=== PATIENT | female | born 1950 | race Caucasian/White ===

== ENCOUNTER → 2016-11-03 | Outpatient (CLI) | payer OTHER, MEDICARE | LOC: FIMAGING 12:08 | PROVIDERS: ATTEND Internal Medicine | DX: M16.0 Bilateral primary osteoarthritis of hip (principal); M51.36 Other intervertebral disc degeneration, lumbar region; M48.06 Spinal stenosis, lumbar region ==

== ENCOUNTER 2016-12-14 06:07 | Inpatient (IN) | payer OTHER, MEDICARE ==
[~2016-12-14 06:07] MED LIST: ROPIVACAINE 0.2% 80 MG, EPINEPHrine 0.2 MG in BAG 0 ML IU ONE; TRANEXAMIC ACID 3,000 MG in NS 50 ML IRR ONE
[2016-12-14] MEDS ORDERED: DEXAMETHASONE 4 MG/ML VIAL IVP ONE (06:33)
[2016-12-14] MEDS ORDERED: FAMOTIDINE 20 MG TAB PO ONE (06:33)
[2016-12-14] MEDS ORDERED: ceFAZolin 2 GM/SWFI 2 GM/20 ML SYR IVP ONE (06:33)
[2016-12-14] MEDS ORDERED: ACETAMINOPHEN 325 MG TAB PO ONE (06:33)
[2016-12-14] MEDS ORDERED: TRANEXAMIC ACID 3,000 MG/50 ML BAG IRR ONE (06:51)
[2016-12-14] MEDS ORDERED: MIDAZOLAM 2 MG/2 ML VIAL IVP ONE (07:00)
--- NOTE | 2016-12-14 07:03 | PDANEPAE ---
ANE History of Present Illness djd hip s/f LYDIA ANE Past Medical History - Cardiovascular History Hx Hypertension: No Hx Arrhythmias: No Hx Chest Pain: No Hx Coronary Artery / Peripheral Vascular Disease: No Hx CHF / Valvular Disease: No Hx Palpitations: No - Pulmonary History Hx COPD: No Hx Asthma/Reactive Airway Disease: No Hx Recent Upper Respiratory Infection: No Hx Oxygen in Use at Home: No Hx Sleep Apnea: No Sleep Apnea Screening Result - Last Documented: Negative - Neurologic History Hx Cerebrovascular Accident: No Hx Seizures: No Hx Dementia: No - Endocrine History Hx Diabetes: No - Renal History Hx Renal Disorders: No - Liver History Hx Hepatic Disorders: No - Neurological & Psychiatric Hx Hx Neurological and Psychiatric Disorders: No - Cancer History Hx Cancer: No - Congenital Disorder History Hx Congenital Disorders: No - GI History Hx Gastrointestinal Disorders: No - Other Health History Other Health History: OA R hip - Chronic Pain History Chronic Pain: Yes (R hip) - Surgical History Prior Surgeries: tonsillectomy age 18. bunionectomy age 32. rhinoplasty 1986 ANE Review of Systems Review of Systems: - Exercise capacity METS (RN): 5 METS ANE Patient History - Allergies Allergies/Adverse Reactions: No Known Allergies Allergy (Verified 12/07/16 13:48) - Home Medications Home medications: home medication list seen and reviewed Home Medications: Diazepam [Valium 5 MG (*)] 5 mg PO HS 12/02/16 [Last Taken 12/13/16] Herbals/Supplements -Info Only 1 ea PO DAILY 12/02/16 [Last Taken 12/06/16 10:00 ] Ibuprofen [Motrin (*)] 200 mg PO BID 12/02/16 [Last Taken 12/07/16] hydrOXYzine HCL [hydrOXYzine HCL (RX)] 25 mg PO HS 12/02/16 [Last Taken 12/13/16 ] traMADol [Ultram 50 mg (*)] 50 mg PO DAILY PRN 12/02/16 [Last Taken 11/30/16] - NPO status NPO Status: no food or drink >8 hours - Anes Hx Anes Hx: post operative nausea - Smoking Hx Smoking Status: Light smoker - Alcohol Use Alcohol Use: Occasionally - Family Anes Hx Family Anes Hx: none ANE Labs/Vital Signs - Labs - CBC WBC: reviewed - Vital Signs Height: 166.37 cm Weight: 50.349 kg ANE Physical Exam - Airway Neck exam: FROM Mallampati Score: Class 1 Mouth exam: poor dentition - Pulmonary Pulmonary: no respiratory distress - Cardiovascular Cardiovascular: regular rate and rhythym - ASA Status ASA Status: II ANE Anesthesia Plan Anesthesia Plan: MAC (R/B/A explained and agrees to proceed), spinal
--- NOTE | 2016-12-14 07:11 | PDHPUP ---
History & Physical Update H&P update statement: This history and physical update is based on an assessment of the patient which was completed after admission or registration (within 24 hours), but prior to the surgery/procedure. H&P update: H&P reviewed & patient examined, no change in patient's condition since H&P completed
[2016-12-14] MEDS ORDERED: PROPOFOL/EMULSION 500 MG/50 ML BOTTLE IV ONE (07:16)
[2016-12-14] MEDS ORDERED: fentaNYL 100 MCG/2 ML INJ ONE (07:16)
[2016-12-14] MEDS ORDERED: ONDANSETRON 4 MG/2 ML VIAL IVP PRN ×2 (07:23→08:11)
[2016-12-14] MEDS ORDERED: DIPHENOXYLATE/ATROPINE LOMOTIL 1 TAB PO PRN (07:23)
[2016-12-14] MEDS ORDERED: MAGNESIUM HYDROXIDE 30 ML UDCUP PO PRN (07:23)
[2016-12-14] MEDS ORDERED: LACTULOSE 20 GM/30 ML UDCUP PO PRN (07:23)
[2016-12-14] MEDS ORDERED: PROMETHAZINE HCL 25 MG SUPPR PR PRN (07:23)
[2016-12-14] MEDS ORDERED: METOCLOPRAMIDE 10 MG/2 ML VIAL IVP PRN ×2 (07:23→08:11)
[2016-12-14] MEDS ORDERED: TEMAZEPAM 15 MG CAP PO PRN (07:23)
[2016-12-14] MEDS ORDERED: diphenhydrAMINE 25 MG CAP PO PRN (07:23)
[2016-12-14] MEDS ORDERED: ONDANSETRON DISINTEGRATING 4 MG TAB PO PRN (07:23)
[2016-12-14] MEDS ORDERED: CYCLOBENZAPRINE 10 MG TAB PO PRN (07:23)
[2016-12-14] MEDS ORDERED: PROMETHAZINE HCL 25 MG/ML INJ IVP PRN ×2 (07:23→08:11)
[2016-12-14] MEDS ORDERED: BISACODYL 10 MG SUPP PR PRN (07:23)
[2016-12-14] MEDS ORDERED: POLYETHYLENE GLYCOL 3350 17 GM PKT PO PRN (07:23)
[2016-12-14] MEDS ORDERED: traMADol 50 MG TAB PO PRN (07:24)
[2016-12-14] MEDS ORDERED: NS 1,000 ML IV SCH (07:30)
[2016-12-14] MEDS ORDERED: PHENYLEPHRINE HCL 100 MCG/ML SYR ONE (07:53)
[2016-12-14] MEDS ORDERED: DEXAMETHASONE 4 MG/ML VIAL IVP PRN (08:11)
[2016-12-14] MEDS ORDERED: LR 500 ML IV PRN (08:11)
[2016-12-14] MEDS ORDERED: ALBUTEROL 3 ML DEYVIAL IH PRN (08:11)
[2016-12-14] MEDS ORDERED: ACETAMINOPHEN 500 MG TAB PO PRN (08:11)
[2016-12-14] MEDS ORDERED: LABETALOL HCL 50 MG/10 ML SYR IVP PRN (08:11)
[2016-12-14] MEDS ORDERED: fentaNYL 100 MCG/2 ML INJ IVP PRN (08:11)
[2016-12-14] MEDS ORDERED: HYDROCODONE/APAP 5/325 TAB PO PRN (08:11)
[2016-12-14] MEDS ORDERED: OXYCODONE/APAP 5/325 TAB PO PRN (08:11)
[2016-12-14] MEDS ORDERED: MEPERIDINE 25 MG/ML SYR IVP PRN (08:11)
[2016-12-14] MEDS ORDERED: NALOXONE HCL 0.4 MG/ML INJ IVP PRN (08:11)
[2016-12-14] MEDS ORDERED: PROPOFOL 200 MG/20 ML VIAL ONE (08:13)
--- NOTE | 2016-12-14 08:29 | POSTOPPROG ---
Post Op Note Date of Operation: 12/14/16 Surgeon: Genoveva [employer] Fundraising Director: karina bergeron Anesthesiologist: dr. gregory Anesthesia: Spinal Pre-op Diagnosis: right hip OA Post-op Diagnosis: same Indication: right hip pain due to OA that failed conservative measures Procedure: R LYDIA ant approach Findings: severe hip OA Inf/Abcess present in the surg proc area at time of surgery?: No EBL: 100-500
--- NOTE | 2016-12-14 10:00 | POSTANESTH ---
Post Anesthetic Evaluation Cardiovascular Status: Normal, Stable Respiratory Status: Normal, Stable Level of Consciousness/Mental Status: Can Participate in Eval Pain Control: Adequate, Prn Tx Ordered Nausea/Vomiting Control: Adequate, Prn Tx Ordered Complications Possibly Related to Anesthesia: None Noted
[2016-12-14 10:18] VITALS: RESP 16
[2016-12-14] MEDS: ACETAMINOPHEN 325 MG TAB PO SCH ×2 (10:57→17:56)
[2016-12-14] MEDS: SENNOSIDES/DOCUSATE SODIUM TAB PO SCH ×2 (10:58→21:42)
[2016-12-14] MEDS: ceFAZolin 2 GM/DEXTROSE 100 ML IV SCH ×2 (13:38→21:42)
[2016-12-14] MEDS: oxyCODONE IR 5 MG TAB PO PRN ×3 (13:38→21:40)
[2016-12-14] MEDS ORDERED: ASPIRIN 325 MG TAB PO SCH (21:00)
[2016-12-14] MEDS ORDERED: DIAZEPAM 5 MG TAB PO SCH (21:00)
[2016-12-14] MEDS: ASPIRIN 81 MG CHEWABLE TAB PO SCH (21:40)
[2016-12-14] MEDS: hydrOXYzine HCL 25 MG TAB PO SCH ×2 (21:45→21:52)
[2016-12-15] MEDS: ACETAMINOPHEN 325 MG TAB PO SCH ×3 (02:24→13:09)
[2016-12-15] MEDS: oxyCODONE IR 5 MG TAB PO PRN ×2 (04:11→08:03)
--- NOTE | 2016-12-15 05:44 | GOP ---
[f rep st] OPERATIVE REPORT DATE OF OPERATION: 12/14/2016 SURGEON: Shane Vaz MD CHEMISTRY TECHNICAL OFFICER: Nahomi Vaz PA-C ANESTHESIA: Spinal. PREOPERATIVE DIAGNOSIS: Right hip osteoarthritis. POSTOPERATIVE DIAGNOSIS: Right hip osteoarthritis. PROCEDURE PERFORMED: Right total hip arthroplasty with x-ray. FINDINGS: ESTIMATED BLOOD LOSS: 200 cc. INDICATIONS: The patient has progressively worsening arthritis of the hip which has failed medical m anagement. The patient understands the treatment options including continued non-operative care and has selected surgical intervention. The patient has decided to undergo total hip arthroplasty via th e direct anterior approach, understanding the risks of the procedure including, but not limited to, n eurovascular injury, infection, persistent pain, component wear and loosening, deep venous thrombosis , pulmonary embolism, limb length inequality, hip instability (including dislocation), and intra-oper ative fractures. DESCRIPTION OF PROCEDURE: After proper identification of the patient including verification and alfonzo ing the surgical site, the patient was brought to the operating room and placed in the supine positio n. All bony prominences were well padded. Anesthesia was induced without complication and intraveno us prophylactic antibiotics were administered prior to skin incision. The operative leg was placed in the Trumpf Arch table extension and the well leg in a Yellofin leg ho lder. The patient was prepped and draped in the usual sterile fashion. The C-arm was draped for int ra-operative fluoroscopy to check acetabular position, femoral component position including leg lengt h and femoral offset. Attention was then drawn to surgical exposure of the hip. An incision was made with a #10 Bard Cross r blade starting 3 cm lateral and 3 cm distal to the anterior superior iliac spine measuring 8-10 cm and coursing distally toward the greater trochanter. The skin and subcutaneous tissues were divided sharply down to the fascia hallie. The fascia hallie was incised in line with the skin incision exposing the underlying tensor fascia hallie muscle. The muscle was bluntly elevated from the fascia and the f irst extracapsular Cobra retractor was placed laterally at the junction of the superior femoral neck and greater trochanter. The lateral femoral circumflex vessels were identified, cauterized, and divi ded with the Aquamantys bipolar cautery. The deep investing fascia of the TFL was divided to allow p orquidea mobilization of the muscle preventing damage during the retraction. The reflected head of the rectus femoris muscle was elevated off the anterior hip capsule and a medial Cobra retractor was plac ed just proximal to the lesser trochanter. The anterior capsulotomy was made sharply from the superolateral acetabulum to the saddle junction of the superior femoral neck and greater trochanter, then coursing inferomedial towards the lesser troc hanter. The retractors were then placed in the intracapsular position for femoral neck osteotomy. C orresponding to pre-operative templating, the osteotomy was made with the oscillating saw carefully p rotecting the greater trochanter and soft tissues. The femoral head was removed from the acetabulum with a corkscrew and confirmed to be severely arthritic with exposed bone, deformity and osteophytes. Similar findings were confirmed in the acetabulum. The Arch table extension was then placed in 40 degrees external rotation. Attention was then drawn to the acetabular preparation. After placement of the anterior and posterio r Cobra retractors outside the labrum and intracapsular, the circumferential labrum was removed sharp ly. The foveal contents were then removed and hemostasis obtained with cautery. The first reamer selected was sized using the removed femoral head. Reaming began with medialization and then commenced in 2 mm increments at 45 degrees of abduction and 15 degrees of anteversion using fluoroscopic navigation. Reaming ceased 1 mm less than the definitive acetabular component and dez esponded to the pre-operative templating. The final acetabular component was inserted using fluorosc opy to achieve proper orientation yielding excellent purchase and stability in the acetabulum. The f inal acetabular liner was then placed and its seating confirmed. Attention was then turned to the femur. The Arch table extension was placed in extension and adducti on, delivering the osteotomized femoral neck into the wound. A 2-pronged femoral elevator was placed at the calcar and another at the tip of the greater trochanter. The posterolateral capsule was rele ased with cautery allowing mobilization of the femur lateral and anterior for preparation. The exter nal rotators were visualized and preserved. A curette and rongeur were used to open the starting poi nt for broaching. Serial broaching started with the #0 broach and ended with the broach that exhibit ed excellent fit in the proximal femur. A change in pitch during mallet strikes was accompanied by t he inability to advance the broach any further. The trial reduction was performed and fluoroscopic n avigation was utilized to check limb length. Adjustments were made to equalize limb length according ly. After the final trials were accepted they were removed and the wound was copiously lavaged. The femo ral component was seated to the same depth as the final broach and the femoral head was impacted onto the clean trunnion. The hip was then reduced for the final time and once more fluoroscopy was used to check that limb length equality was achieved. The wound was irrigated and closed in layers, the fascia hallie with 2-0 Quill, the subcutaneous tissue with 2-0 Quill, and the skin with Dermabond. Sterile dressings were applied. Final sharps and spon ge counts were accurate. The patient was then transferred to a hospital bed and brought to the [facility] room in stable condition. SURGEON: Shane Vaz MD IMPLANTS: Accolade II, size 5 at 127. Acetabular component a 50 mm Tritanium. The liner is a Tride nt X3, 32 mm. The head is a Biolox Delta, 32 mm, -4. /[id number]/MODL
[2016-12-15] MEDS: SENNOSIDES/DOCUSATE SODIUM TAB PO SCH (08:03)
[2016-12-15] MEDS: ASPIRIN 81 MG CHEWABLE TAB PO SCH (08:03)
[2016-12-15] MEDS ORDERED: FAMOTIDINE 20 MG TAB PO SCH (09:00)
[2016-12-15 09:09] VITALS: BP 119/65; PULSE 71; TEMP 98.6; O2SAT 89
--- NOTE | 2016-12-15 09:41 | SOAPPROG ---
SOAP Progress Note Assessment/Plan: Assessment: Patient is doing well POD 1 s/p R LYDIA Pain management: pain is well controlled on oral pain meds. VTE ppx: recommend aspirin twice daily for 3 weeks, cont CELESTINA and SCDs Anemia: level is expected initially postop. Asymptomatic. Continue to monitor D/c planning: d/c to home today pending release from PT Plan: 12/15/16 09:40 Subjective: Bushra is doing well today, denies SOB, chest pain and N/V. Objective: Vital Signs Temp Pulse Resp BP Pulse Ox 37.0 C 71 16 119/65 89 L 12/15/16 08:00 12/15/16 08:00 12/15/16 08:00 12/15/16 08:00 12/15/16 08:00 Laboratory Results 12/15/16 04:53 12/15/16 04:53 12/14/16 12/15/16 12/16/16 05:59 05:59 05:59 Intake Total 4067 300 Output Total 1450 625 Balance 2617 -325 RLE: incision dressing is clean and dry, NVI, +pf/df ICD10 Worksheet Patient Problems: Problems Problem Status Onset Primary localized osteoarthritis of right hip Acute
--- NOTE | 2016-12-15 15:10 | ASDISCHSUM ---
Discharge Information Plan Status:Home with No Needs Medically Cleared to Leave: Discharge Date:12/15/2016 12:38 PM D/C Disposition:Home, Routine, Self-Care ADT D/C Disposition:Home, Routine, Self-Care Projected Discharge Date:12/15/2016 12:38 PM Transportation at D/C: Discharge Delay Reason: Follow-Up Date:12/15/2016 12:38 PM Discharge Slot: Final Diagnosis: Placement Information Patient Contact Information Contact Name:TIFFANY Relationship:Life Partner Address:[address] City:[place] Alternate Phone: [facility]/Zip Code:[place] [address] Email: Financial Information Financial Class: Primary Plan Desc:MEDICARE INPATIENT Primary Plan Number:[id number] Secondary Plan Desc:AARP/MDR SUPPLEMENT Secondary Plan Number:[id number] Assessment Information 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 CM Note CM Note Notes: Bushra will be discharging home, independently Dr. Vaz has instructed her to wait 3 weeks until attending outpatient physical therapy. Bushra has had a very difficult time filling her Celebrex prescription. Her insurance does not cover it and the pharmacy cannot give her anything similar She has been in contact with Paul' office on this matter. Bushra has attended the [facility], and she has all medical equipment ready for post-surgery. Date Signed: 12/08/2016 11:08 AM Electronically Signed By:Marcy Collins Intervention Information
--- NOTE | 2016-12-15 15:10 | ASDISCHSUM ---
Discharge Information Plan Status:Home with No Needs Medically Cleared to Leave: Discharge Date:12/15/2016 12:38 PM D/C Disposition:Home, Routine, Self-Care ADT D/C Disposition:Home, Routine, Self-Care Projected Discharge Date:12/15/2016 12:38 PM Transportation at D/C: Discharge Delay Reason: Follow-Up Date:12/15/2016 12:38 PM Discharge Slot: Final Diagnosis: Placement Information Patient Contact Information Contact Name:TIFFANY Relationship:Life Partner Address:[address] City:[place] Alternate Phone: [facility]/Zip Code:[place] [address] Email: Financial Information Financial Class: Primary Plan Desc:MEDICARE INPATIENT Primary Plan Number:[id number] Secondary Plan Desc:AARP/MDR SUPPLEMENT Secondary Plan Number:[id number] Assessment Information 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 CM Note CM Note Notes: Bushra will be discharging home, independently Dr. Vaz has instructed her to wait 3 weeks until attending outpatient physical therapy. Bushra has had a very difficult time filling her Celebrex prescription. Her insurance does not cover it and the pharmacy cannot give her anything similar She has been in contact with Paul' office on this matter. Bushra has attended the [facility], and she has all medical equipment ready for post-surgery. Date Signed: 12/08/2016 11:08 AM Electronically Signed By:Marcy Collins Intervention Information
--- NOTE | 2016-12-15 15:10 | ASDISCHSUM ---
Discharge Information Plan Status:Home with No Needs Medically Cleared to Leave: Discharge Date:12/15/2016 12:38 PM D/C Disposition:Home, Routine, Self-Care ADT D/C Disposition:Home, Routine, Self-Care Projected Discharge Date:12/15/2016 12:38 PM Transportation at D/C: Discharge Delay Reason: Follow-Up Date:12/15/2016 12:38 PM Discharge Slot: Final Diagnosis: Placement Information Patient Contact Information Contact Name:TIFFANY Relationship:Life Partner Address:[address] City:[place] Alternate Phone: [facility]/Zip Code:[place] [address] Email: Financial Information Financial Class: Primary Plan Desc:MEDICARE INPATIENT Primary Plan Number:[id number] Secondary Plan Desc:AARP/MDR SUPPLEMENT Secondary Plan Number:[id number] Assessment Information 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 CM Note CM Note Notes: Bushra will be discharging home, independently Dr. Vaz has instructed her to wait 3 weeks until attending outpatient physical therapy. Bushra has had a very difficult time filling her Celebrex prescription. Her insurance does not cover it and the pharmacy cannot give her anything similar She has been in contact with Paul' office on this matter. Bushra has attended the [facility], and she has all medical equipment ready for post-surgery. Date Signed: 12/08/2016 11:08 AM Electronically Signed By:Marcy Collins Intervention Information
--- NOTE | 2016-12-15 17:07 | GDS ---
[f rep st] DISCHARGE SUMMARY ADMISSION DIAGNOSIS: Right hip osteoarthritis. DISCHARGE DIAGNOSIS: Right hip osteoarthritis. PROCEDURE: Right total hip arthroplasty. VTE PROPHYLAXIS: Aspirin recommended 3 weeks daily. BRIEF DESCRIPTION OF HOSPITAL STAY: Patient was admitted for an elective joint arthroplasty. The pa annette tolerated the procedure well and has passed physical therapy. The patient was given appropriat e antibiotic prophylaxis and venous thromboembolism prophylaxis. The patient's pain was well control led on oral pain medication, patient was holding down food, and had urinated. Decision was made to d ischarge the patient. The patient was given post-operative prescriptions pre-operatively. PLAN: Please follow up as scheduled with Dr. Vaz at [facility] on January 05 at 1:45 p.m. /[id number]/MODL
--- NOTE | 2016-12-15 17:07 | GDS ---
[f rep st] DISCHARGE SUMMARY ADMISSION DIAGNOSIS: Right hip osteoarthritis. DISCHARGE DIAGNOSIS: Right hip osteoarthritis. PROCEDURE: Right total hip arthroplasty. VTE PROPHYLAXIS: Aspirin recommended 3 weeks daily. BRIEF DESCRIPTION OF HOSPITAL STAY: Patient was admitted for an elective joint arthroplasty. The pa annette tolerated the procedure well and has passed physical therapy. The patient was given appropriat e antibiotic prophylaxis and venous thromboembolism prophylaxis. The patient's pain was well control led on oral pain medication, patient was holding down food, and had urinated. Decision was made to d ischarge the patient. The patient was given post-operative prescriptions pre-operatively. PLAN: Please follow up as scheduled with Dr. Vaz at [facility] on January 05 at 1:45 p.m. /[id number]/MODL
== END 2016-12-15 12:38 | disposition home or self-care (01) | DRG 470 ==
LOC: F3N 06:07
PROVIDERS: ADMIT Orthopaedic Surgery; ATTEND Orthopaedic Surgery
PROC: 0SR904Z Replacement of Right Hip Joint with Ceramic on Polyethylene Synthetic Substitute, Open Approach (ICD-10-PCS; principal; 2016-12-14 07:15)
DX: M16.11 Unilateral primary osteoarthritis, right hip (principal)
CPT/HCPCS: 97110-GP; 97116-GP; 97161-GP; 97165-GO; G8978-GP-CK; G8979-GP-CJ; G8987-GO-CI; G8988-GO-CI; G8989-GO-CI; J0171; J0690; J1100; J2250; J2370; J2704; J2795; J3010

== ENCOUNTER → 2017-02-14 | Outpatient (CLI) | payer OTHER, MEDICARE | LOC: FIMAGING 12:42 | PROVIDERS: ATTEND Obstetrics & Gynecology | DX: Z12.31 Encounter for screening mammogram for malignant neoplasm of breast (principal); Z80.3 Family history of malignant neoplasm of breast ==

== ENCOUNTER → 2018-04-12 | Outpatient (CLI) | payer OTHER, MEDICARE | LOC: FIMAGING 12:16 | PROVIDERS: ATTEND Internal Medicine | DX: Z12.31 Encounter for screening mammogram for malignant neoplasm of breast (principal); R92.8 Other abnormal and inconclusive findings on diagnostic imaging of breast ==

== ENCOUNTER → 2018-04-26 | Outpatient (CLI) | payer OTHER, MEDICARE | LOC: FIMAGING 09:29 | PROVIDERS: ATTEND Internal Medicine | DX: N63.23 Unspecified lump in the left breast, lower outer quadrant (principal) ==